=== PATIENT | female | born 1990 | race Caucasian/White ===

== ENCOUNTER 2017-01-24 04:04 | Inpatient (IN) ==
[2017-01-24] MEDS ORDERED: MAG-AL + SIM ORAL LIQUID 30ml PO PRN (04:37)
[2017-01-24] MEDS ORDERED: ACETAMINOPHEN 500 MG TABLET PO PRN (04:37)
[2017-01-24] MEDS ORDERED: LIDOCAINE 1% (10mg/ml) 2mL INJ PF SDV ID PRN (04:37)
[2017-01-24] MEDS ORDERED: CARBOPROST 250 MCG/ML INJECTION IM PRN (04:37)
[2017-01-24] MEDS ORDERED: CALCIUM CARBONATE Chewable 500mg TABLET PO PRN (04:37)
[2017-01-24] MEDS ORDERED: METHYLERGONOVINE 0.2 MG/ML INJECTION IM PRN (04:37)
[2017-01-24 05:05] VITALS: BMI 24.3
[2017-01-24] MEDS ORDERED: LR 1,000 ML IV SCH (05:15)
[2017-01-24] MEDS: OXYTOCIN DRIP 30 UNIT/500 ML ML IV SCH ×2 (07:32→10:13)
[2017-01-24] MEDS ORDERED: DiphenhydrAMINE 25 MG CAPSULE PO PRN (10:08)
[2017-01-24] MEDS ORDERED: SALINE FLUSH 10ml SYRINGE IVF PRN (10:08)
[2017-01-24] MEDS ORDERED: HYDROCORTISONE 2.5% CREAM 30gm RECTALLY PRN (10:08)
[2017-01-24] MEDS ORDERED: HYDROCODONE/APAP 5mg/325mg TABLET PO PRN (10:08)
[2017-01-24] MEDS: DOCUSATE CALCIUM 240 MG CAPSULE PO SCH (10:11)
[2017-01-24] MEDS: IBUPROFEN 800 MG TABLET PO PRN ×2 (10:11→17:56)
--- NOTE | 2017-01-24 10:58 | Labor and Delivery Note ---
DATE OF DELIVERY 01/24/2017 ANTELMO Levine is a 26-year-old 1 at 40 weeks 3 days gestational age who presented to [facility] with contractions and was found to be 6 cm dilated. On my arrival she was 8 cm and +2 station. Her membranes were ruptured artificially, returning clear fluids. An hour later she was complete. She pushed for almost an hour and had a spontaneous vaginal delivery of a viable male infant, Apgars 9/10, weight 3125 g, name "Vladimir." Baby was vigorous at delivery so he was placed on mom's abdomen and the cord clamping was delayed for more than two minutes. The placenta delivered spontaneously. She had small bilateral vaginal lacerations that were repaired with 2-0 Vicryl. Her bleeding was still a little more brisk than what I would like so she was given a dose of Methergine and her bleeding improved. Mom and baby tolerated the delivery well. [facility]
[2017-01-24] MEDS ORDERED: OXYTOCIN DRIP 30 UNIT/500 ML ML IV SCH (11:45)
[2017-01-24 20:57] VITALS: RESP 16; O2SAT 99
[2017-01-25] MEDS: IBUPROFEN 800 MG TABLET PO PRN ×2 (01:44→09:31)
[2017-01-25 06:22] VITALS: BP 119/73; PULSE 71; TEMP 9
[2017-01-25] MEDS: DOCUSATE CALCIUM 240 MG CAPSULE PO SCH (09:32)
--- NOTE | 2017-01-25 12:24 | Discharge Instructions ---
Discharge Plan - Med Rec/Dispo Prescriptions: New Ferrous Sulfate [Feosol] 324 mg PO BID #60 tab Hydrocodone/APAP 5/325 [[place] 5/325] 1 - 2 tab PO Q4H PRN #20 tab PRN Reason: Pain Docusate Calcium [Surfak] 240 mg PO DAILY #30 cap Ibuprofen [Motrin] 800 mg PO Q8H PRN #30 tab PRN Reason: Pain No Action Vit No.78/Iron/FA [Prenatabs FA Tablet] 1 each PO DAILY - Disposition 01 Discharged Home, Self-Care
== END 2017-01-25 14:15 | disposition home or self-care (01) | DRG 775 ==
LOC: OBOBS 04:04 → MC 04:05
PROVIDERS: ADMIT Obstetrics & Gynecology; ATTEND Obstetrics & Gynecology